=== PATIENT | female | born 1955 | race Caucasian/White ===

== ENCOUNTER → 2017-08-24 | Outpatient (CLI) | payer MEDICARE ==
[~2017-08-24] MED LIST: ASPI-516 CHEW
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
== END ==
LOC: HRAD 11:05
PROVIDERS: ATTEND Physical Medicine & Rehabilitation
DX: R13.12 Dysphagia, oropharyngeal phase (principal); S06.9X5D Unspecified intracranial injury with loss of consciousness greater than 24 hours with return to pre-existing conscious level, subsequent encounter; X58.XXXD Exposure to other specified factors, subsequent encounter
CPT/HCPCS: 74230; 92611; G8996; G8997; G8998